=== PATIENT | male | born 1990 | race Caucasian/White ===

== ENCOUNTER 2017-11-30 14:37 | Emergency (ER) | payer SELFPAY ==
--- NOTE | 2017-11-30 14:37 | DT_ITS ---
This patient was seen during an EMR downtime November 25, 2017 - December 02, 2017. This patient may have a combination of paper and electronic documentation or all paper documentation. All documentation is viewable within the e-chart portion of [employer] [facility] for each patient visit.
--- NOTE | 2017-11-30 14:46 | RAD_ITS ---
STUDY: X-RAY - LEFT HAND REASON FOR EXAM: Male, 27 years old. Hand pain. Thumb injury TECHNIQUE: 4 view(s) of the hand. COMPARISON: None. FINDINGS: Normal radiocarpal articulation. Normal distal radioulnar joint. Normal visualized carpal bones. Normal carpal articulations Normal carpometacarpal articulation of the thumb. Normal second through fifth carpometacarpal joints. Normal metacarpi. Normal metacarpophalangeal joint of the thumb. Normal interphalangeal joint of the thumb. Normal proximal and distal phalanges of the thumb. Normal metacarpophalangeal joints of the second through fifth fingers. Normal proximal and distal interphalangeal joints of the second through fifth fingers. Normal phalanges of the second through fifth fingers. The soft tissue structures are unremarkable. RAD/Hand Min 3 Views IMPRESSION: Normal x-ray examination of the hand. Electronically Signed: Cheikh Stuart DO at 14:58 EDT Tel , Service support ,
== END 2017-11-30 16:00 | disposition home or self-care (01) ==
LOC: ED 12-01 14:08
PROVIDERS: Emergency Provider Emergency Medicine; Family Provider Internal Medicine; PCP Internal Medicine
DX: M79.642 Pain in left hand (principal)
CPT/HCPCS: 73130

== ENCOUNTER → 2018-09-26 10:25 | Outpatient (CLI) | payer SELFPAY ==
[2018-09-26 10:18] VITALS: BMI 22.2
--- NOTE | 2018-09-26 10:29 | RAD_ITS ---
STUDY: X-RAY - LEFT TIBIA AND FIBULA REASON FOR EXAM: Male, 28 years old. Pain. TECHNIQUE: 2 view(s) of the tibia and fibula were obtained. COMPARISON: None. FINDINGS: Normal visualized tibia. Normal visualized fibula. The soft tissue structures are unremarkable. RAD/Tibia & Fibula 2 Views IMPRESSION: Normal x-ray examination of the tibia and fibula. Electronically Signed: Jordan Acosta, at 11:13 EDT , Service support ,
== END ==
PROVIDERS: Family Provider Internal Medicine; PCP Internal Medicine; Referring Provider Physician Assistant Surgical; Visit Provider Physician Assistant Surgical
DX: S80.12XA Contusion of left lower leg, initial encounter (principal); X58.XXXA Exposure to other specified factors, initial encounter; Y93.9 Activity, unspecified; Y92.9 Unspecified place or not applicable; Y99.9 Unspecified external cause status
CPT/HCPCS: 73590

== ENCOUNTER → 2019-03-18 16:56 | Outpatient (CLI) | payer SELFPAY ==
[2018-09-26 10:18] VITALS: BMI 22.2
--- NOTE | 2019-03-18 16:59 | RAD_ITS ---
STUDY: X-RAY - UNILATERAL RIBS ( RIGHT ) WITH CHEST REASON FOR EXAM: Male, 28 years old. Right rib pain after acute injury. TECHNIQUE - RIBS: 4 view(s) of the ribs. TECHNIQUE - CHEST: 1 view COMPARISON: Prior chest radiograph January 28, 2016 FINDINGS - RIBS: Normal visualized ribs without a demonstrated fracture. FINDINGS - CHEST: The lungs are clear and expanded. There is no demonstrated pleural abnormality. Normal size heart. Normal mediastinum and umu. Normal visualized pulmonary arteries. Normal visualized aortic arch and descending thoracic aorta. Normal visualized thoracic spine. Normal visualized ribs, clavicles, and shoulders. There is no demonstrated abnormality of the visualized soft tissue structures of the upper abdomen. RAD/Ribs Uni Min 3V w/PA Chest IMPRESSION: RIBS: Normal x-ray examination of the ribs. CHEST: Normal x-ray examination of the chest. Electronically Signed: Kate Borja MD at 18:34 EDT , Service support ,
== END ==
PROVIDERS: Family Provider Internal Medicine; PCP Internal Medicine; Referring Provider Physician Assistant; Visit Provider Physician Assistant
DX: S29.9XXA Unspecified injury of thorax, initial encounter (principal); X58.XXXA Exposure to other specified factors, initial encounter; Y93.9 Activity, unspecified; Y92.9 Unspecified place or not applicable; Y99.9 Unspecified external cause status
CPT/HCPCS: 71101

== ENCOUNTER → 2019-09-30 12:37 | Outpatient (CLI) | payer SELFPAY ==
[2019-03-18 17:27] VITALS: BMI 22.2
--- NOTE | 2019-09-30 12:38 | RAD_ITS ---
STUDY: X-RAY - RIGHT ANKLE REASON FOR EXAM: Male, 29 years old. TWISTED ANKLE LAST NIGHT, LATERAL PAIN TECHNIQUE: 3 view(s) of the ankle. COMPARISON: None. FINDINGS: Normal visualized distal tibia and fibula. Normal medial and lateral malleoli. Normal tibiotalar articulation and ankle mortise. Normal visualized talus and calcaneus. The visualized subtalar, talonavicular, calcaneocuboid and tarsal articulations are normal. The soft tissue structures are unremarkable. RAD/Ankle min 3 Views IMPRESSION: Normal x-ray examination of the ankle. Electronically Signed: Jordan Acosta, at 15:57 EDT , Service support ,
--- NOTE | 2019-09-30 12:38 | RAD_ITS ---
STUDY: X-RAY - RIGHT FOOT CLINICAL: Male, 29 years old. TWISTED FOOT LAST NIGHT LATERAL PAIN TECHNIQUE: 3 view(s) of the foot. COMPARISON: None. FINDINGS: Normal talus, calcaneus, and tarsal bones. Normal visualized subtalar, talonavicular, calcaneocuboid, tarsal and tarsometatarsal articulations. Normal metatarsi. Normal metatarsophalangeal joint of the great toe. Normal tibial and fibular sesamoid bones. Normal interphalangeal joint of the great toe. Normal phalanges of the great toe. Normal second through fifth metatarsophalangeal joints. Normal interphalangeal joints and phalanges of the lesser toes. The soft tissue structures are unremarkable. RAD/Foot min 3 Views IMPRESSION: Normal x-ray examination of the foot. Electronically Signed: Jordan Acosta, at 15:56 EDT , Service support ,
== END ==
PROVIDERS: PCP Internal Medicine; Referring Provider Physician Assistant; Visit Provider Physician Assistant
DX: S99.911A Unspecified injury of right ankle, initial encounter (principal); S99.921A Unspecified injury of right foot, initial encounter; X58.XXXA Exposure to other specified factors, initial encounter; Y93.9 Activity, unspecified; Y99.9 Unspecified external cause status
CPT/HCPCS: 73610; 73630

== ENCOUNTER → 2021-01-10 15:33 | Outpatient (CLI) | payer SELFPAY ==
--- NOTE | 2021-01-10 16:00 | MRI_ITS ---
STUDY: MRI LUMBAR SPINE WITHOUT CONTRAST REASON FOR EXAM: Male, 30 years old. SCIATICA R TECHNIQUE: Standardized fat and water weighted pulse sequences were obtained in the sagittal and axial planes. COMPARISON: None FINDINGS: T12-L1: Normal endplates. Normal disc height, hydration and morphology. Normal bilateral facet joints. Normal central canal and bilateral lateral recesses. Normal bilateral intervertebral neural foramina. Decreased lumbar lordosis. There is no substantial scoliosis. Normal conus medullaris that terminates at L1 L1-2: Normal endplates. Normal disc height, hydration and morphology. Normal bilateral facet joints. Normal central canal and bilateral lateral recesses. Normal bilateral intervertebral neural foramina. L2-3: Normal endplates. Normal disc height, desiccation and normal morphology. Normal bilateral facet joints. Normal central canal and bilateral lateral recesses. Normal bilateral intervertebral neural foramina. L3-4: Normal endplates. Normal disc height, desiccation and normal morphology. Normal bilateral facet joints. Normal central canal and bilateral lateral recesses. Normal bilateral intervertebral neural foramina. L4-5: Normal endplates. Normal disc height, desiccation and tiny central annular tear and disc protrusion.. Normal bilateral facet joints. Normal central canal and bilateral lateral recesses. Normal bilateral intervertebral neural foramina. L5-S1: Normal endplates. Normal disc height, desiccation and minor bulging of the annulus with moderate size right paracentral/posterolateral disc extrusion with posterior inferior migration of disc fragment displacing the descending S1 nerve root on the right.. Normal bilateral facet joints. Normal central canal. Moderate right lateral recess encroachment. Minor bilateral neuroforaminal encroachment. Normal visualized sacral ala. Normal visualized paraspinous soft tissue structures. MRI/Spine Lumbar (Routine) IMPRESSION: No evidence for acute fracture or other significant bony pathology.. Multilevel disc degeneration. Spinal stenosis at L5-S1 more severe on the right secondary to minor annular bulge with moderate-sized right paracentral/posterolateral disc extrusion displacing the descending right S1 nerve root. Tiny central annular tear and disc protrusion at L4-5 without spinal stenosis Electronically Signed: Heriberto Max MD at 16:40 EDT , Service support ,
--- NOTE | 2021-01-10 16:45 | MRI_ITS ---
STUDY: MRI BILATERAL HIPS T PELVIS REASON FOR EXAM: Low back pain extending into right leg since injury 11/04/2020. TECHNIQUE: Standardized fat and water weighted pulse sequences were obtained in all 3 orthogonal planes. COMPARISON: None. FINDINGS: RIGHT HIP Normal hip joint without articular joint space narrowing. Normal right acetabulum. Normal right labrum. Normal right femoral head. Normal right femoral neck and intratrochanteric region. Normal right gluteus minimus, medius and iliopsoas tendons and distal insertions. Normal right superior and inferior pubic rami. Normal right pubic symphysis. Normal right ischial tuberosity. Normal origin of the right hamstring tendons. Normal visualized right iliac wing, sacroiliac joint, and sacral ala. Normal visualized soft tissue structures of the pelvis. LEFT HIP Normal left hip joint without articular joint space narrowing. Normal left acetabulum. Normal left labrum. Normal left femoral head. Normal left femoral neck and intratrochanteric region. Normal left gluteus minimus, medius and iliopsoas tendons and distal insertions. Normal left superior and inferior pubic rami. Normal left pubic symphysis. Normal left ischial tuberosity. Normal origin of the left hamstring tendons. Normal visualized left iliac wing, sacroiliac joint, and sacral ala. Normal visualized soft tissue structures of the pelvis. MRI/Pelvis (Routine) IMPRESSION: Normal MRI of the pelvis/bilateral hips. Electronically Signed: Jorge Mallory MD at 11:32 EDT Tel , Service support ,
== END ==
PROVIDERS: PCP Internal Medicine; Referring Provider Internal Medicine; Visit Provider Internal Medicine
DX: M54.30 Sciatica, unspecified side (principal)
CPT/HCPCS: 72148; 72195

== ENCOUNTER 2021-05-03 15:56 | Emergency (ER) | payer OTHER, SELFPAY ==
[2021-05-03 15:56] VITALS: BP 160/85; PULSE 107; RESP 18; TEMP 37.2; O2SAT 100; BMI 19.9
--- NOTE | 2021-05-03 16:17 | ED.VIS.BACK ---
HPI History of Present Illness Chief Complaint: Back Narrative Narrative: 31-year-old male presenting with back pain. He states this is not a new issue. He initially injured his back in October. He has been following up outpatient for physical therapy and has been seeing Dr. Garduno. He has tried muscle relaxers and steroids. He currently has a flareup of this pain. He states he was supposed to follow-up with the [facility] spinal specialist however after already seeing him and having physical therapy he is insurance is now no longer covered by the specialist and he does not have follow-up. Patient denies any loss of bladder or bowel control. He denies saddle anesthesia. He is eating and drinking normally. He states that the pain in his back radiates into the right gluteal region and down the posterior aspect of his leg and this is consistent with what it has been although it was better controlled previously. He is able to ambulate. PFSH PFSH Medical History Hx of appendicitis Hx of melanoma of skin Smoker Home Medications ibuprofen [Motrin] 800 mg PO Q6H PRN 05/03/21 [History Last Taken Unknown] Allergy/AdvReac Type Severity Reaction Status Date / Time walnut Allergy Hives Verified 05/03/21 15:58 Family History Other Skin cancer Social History Smoking Status: Never smoker alcohol intake: current alcohol intake frequency: a few times a month Alcohol type: hard liquor ROS ROS ED Review of Systems ROS Unobtainable: Denies due to encephalopathy Constitutional Constitutional ED: Denies chills or fever(s) Eyes Eyes: Denies blurry vision or change in vision ENT ENT ED: Denies rhinorrhea or sore throat Cardiovascular Cardiovascular: Denies chest pain or palpitations Respiratory/Chest Respiratory/Chest: Denies dyspnea or sputum Gastrointestinal Gastrointestinal: Denies abdominal pain or nausea Genitourinary Genitourinary ED: Denies dysuria or hematuria Musculoskeletal Musculoskeletal: Reports back pain; Denies arthralgias or myalgias Integumentary Denies Abrasions or rash Neurologic Neurologic: Reports paresthesias RLE; Denies headache(s) EXAM Physical Exam Const Vital Signs: 05/03/21 15:56 11/10/21 16:53 Temperature 98.9 F Temperature Source Temporal Pulse Rate 107 H 72 Respiratory Rate 18 15 Blood Pressure 160/85 H Blood Pressure Mean 110 Pulse Ox 100 100 Oxygen Delivery Method Room Air Room Air Positive well nourished General Appearance ED: NAD; Negative for pallor HEENT Reports moist mucous membranes Negative for trauma Eyes PERRL and EOMs intact bilaterally Resp normal respiratory effort and clear to auscultation bilaterally Cardio regular rate and regular rhythm Back/Spine Back/Spine Narrative: Right lumbar paraspinal musculature tenderness. There is tenderness that extends into the right gluteal region. Patient able to flex the right hip to approximately 30 degrees actively. Sensation is intact. Extremity normal to inspection General Extremety ED: Negative for tenderness Neuro oriented x3 Sensorium / Orientation: alert Psych mental status grossly normal Skin General Skin Exam: Negative for jaundice or pallor MDM MDM MDM Narrative Medical decision making narrative: Patient given IM morphine, Zofran, oxycodone. On reevaluation his pain is improved. I will give him a short supply of Percocet and a prednisone taper as this is helped him in the past. He will be given follow-up with Dr. Bartlett. Patient has no signs or symptoms of cauda equina or other acute pathology requiring MRI. He previously had an MRI which showed bulging disks. Patient will follow up outpatient with Dr. Garduno and ortho spine. Impression: 1. Lumbar radiculopathy Discharge Plan Triage Chief Complaint: Back ED Provider: Simeon Evans Dx/Rx/DC Orders Instructions: ED Back Sprain/Strain Prescriptions: No Action ibuprofen [Motrin] 800 mg Tablet 800 mg PO Q6H PRN (Reason: Pain) RF: 0 Primary Care Provider: Jaky Garduno Referrals: Jaky Garduno MD [Primary Care Provider] - Heriberto Bartlett DO [STAFF PHYSICIAN] - As soon as possible Disposition Disposition: Home, Self Care
[2021-05-03] MEDS: Morphine 4 MG/ML Syringe IM (16:47)
[2021-05-03] MEDS: oxyCODONE 5 MG Tablet PO (16:47)
[2021-05-03] MEDS: Ondansetron ODT 4 MG Tablet PO (16:48)
[2021-05-03 16:53] VITALS: PULSE 72; RESP 15; O2SAT 100
== END 2021-05-03 20:03 | disposition home or self-care (01) ==
LOC: ED 16:44
PROVIDERS: Emergency Provider Student in an Organized Health Care Education/Training Program; PCP Internal Medicine
DX: M54.16 Radiculopathy, lumbar region (principal); Z85.820 Personal history of malignant melanoma of skin; Z79.1 Long term (current) use of non-steroidal anti-inflammatories (NSAID)
CPT/HCPCS: 96372; 99282

== ENCOUNTER 2024-06-01 20:18 | Observation (INO) | payer SELFPAY ==
[2024-06-01 20:21] VITALS: BP 141/79; PULSE 78; RESP 18; TEMP 37.2; O2SAT 100; BMI 21.3
[2024-06-01 20:23] VITALS: BP 141/79; PULSE 78; RESP 18; TEMP 37.2; O2SAT 100
--- NOTE | 2024-06-01 21:12 | EX.ED.DYSGE1 ---
HPI History of Present Illness Chief Complaint: Cellulitis Informant: patient Onset/Context/Timing Onset: Today Context: Sudden Onset Timing: Continuous Quality: Stiffness Location: Dorsal aspect of right hand over third MCP joint Worsened by: Movement Relieved by: Nothing Narrative Narrative: Patient presents with redness and swelling to his right hand that began today. Patient states he noted the redness going up his forearm into his upper arm. Patient states he was working outside today and was picking up some animals without any gloves on. Patient is unsure if there is an open wound on his hand. Patient describes his pain as a stiffness. Patient states it is worse with movement. Patient thinks his last tetanus was approximately 10 years ago. Patient admits to some tingling into his fingers. Patient denies any weakness. Patient denies any fevers or chills. Patient admits to some nausea but denies any vomiting. [facility] Medical History Skull fracture Smoker Hx of appendicitis Hx of melanoma of skin Home Medications ?Medication ?Instructions ?Recorded ?Last Taken ?Type ibuprofen 800 mg tablet 800 mg PO Q6H PRN Pain 05/03/21 Unknown History methocarbamol 500 mg tablet 500 mg PO QHS 05/22/21 Unknown History naproxen sodium 220 mg capsule 220 mg PO BID PRN 05/22/21 Unknown History (Aleve) Allergy/AdvReac Type Severity Reaction Status Date / Time walnut Allergy Hives Verified 06/01/24 20:21 Family History (Updated 05/22/21 @ 10:02 by Ebonie Ramos) Other Melanoma Skin cancer Surgical History History of appendectomy Social History Smoking Status: Current every day smoker tobacco type: cigarettes alcohol intake: current alcohol intake frequency: a few times a month Alcohol type: hard liquor substance use type: does not use what type of physical activity do you participate in: running and swimming do you feel safe at home: Yes ROS ROS ED Constitutional Constitutional ED: Denies chills or fever(s) Eyes Eyes: Denies blurry vision or change in vision ENT ENT ED: Reports sore throat; Denies rhinorrhea Cardiovascular Cardiovascular: Denies chest pain or palpitations Respiratory/Chest Respiratory/Chest: Reports dyspnea; Denies cough Gastrointestinal Gastrointestinal: Reports nausea; Denies vomiting Genitourinary Genitourinary ED: Denies dysuria or hematuria Musculoskeletal Musculoskeletal: Denies back pain or neck pain Integumentary Reports rash; Denies abscess Neurologic Neurologic: Reports headache(s); Denies weakness Allergic/Immunologic Allergic/Immunologic ED: Denies mouth swelling or urticaria EXAM Physical Exam Const Vital Signs: 06/01/24 20:21 06/01/24 20:23 06/01/24 22:00 Temperature 98.9 F 98.9 F 98.9 F Temperature Source Oral Oral Oral Pulse Rate 78 78 59 L Respiratory Rate 18 18 18 Blood Pressure 141/79 H 141/79 H 123/78 H Blood Pressure Mean 99 99 93 Pulse Ox 100 100 98 Oxygen Delivery Method Room Air Room Air Room Air 06/01/24 22:50 06/01/24 23:42 Temperature 98.7 F 98.6 F Temperature Source Oral Oral Pulse Rate 54 L 59 L Respiratory Rate 16 16 Blood Pressure 122/79 H 130/70 H Blood Pressure Mean 93 90 Pulse Ox 99 97 Oxygen Delivery Method Room Air Positive well nourished and well developed General Appearance ED: well developed and NAD HEENT Reports moist mucous membranes Neck supple and no JVD Resp normal respiratory effort and clear to auscultation bilaterally Cardio regular rate, regular rhythm and no murmurs GI non-tender and non-distended Palpation: soft Extremity Extremity Narrative: There is erythema and warmth over the dorsal aspect of the right hand over the third MCP joint. There is no evidence of any abscess. There is no fluctuance. There is no active discharge or drainage. There is erythematous streaking over the dorsal aspect of his forearm and upper arm. Radial pulses are equal bilaterally. Sensation is intact to light touch in the radial, median, and ulnar areas. Strength is 5/5 in the radial, median, and ulnar areas. Neuro oriented x3, CN's II-XII intact bilaterally and no sensory deficits noted Sensorium / Orientation: alert Motor Exam: strength 5/5 throughout Psych mental status grossly normal MDM MDM MDM Narrative Medical decision making narrative: Differential diagnosis includes cellulitis, lymphangitis, osteomyelitis, sepsis, and retained foreign body. X-rays of the right hand will be obtained to assess for osteomyelitis and retained foreign body. CBC will be obtained to assess for leukocytosis and anemia. Basic metabolic profile will be obtained to assess for electrolyte abnormality and renal function. Blood cultures will be obtained to assess for sepsis. Serum lactate will be obtained to assess for sepsis. Lab Data Attestation: I reviewed the patient's lab results. Lab results narrative: CBC was reviewed today and was within normal limits. Basic metabolic profile was reviewed and was within normal limits. Serum lactate was reviewed and was normal. Labs: Laboratory Results - last 24 hr 06/01/24 22:00 WBC 10.3 RBC 4.18 L Hgb 13.2 Hct 37.6 L MCV 90.0 MCH 31.6 MCHC 35.1 RDW Std Deviation 42.5 RDW Coeff of Lilia 13.0 Plt Count 173 MPV 9.8 Immature Gran % (Auto) 0.300 Neut % (Auto) 67.3 Lymph % (Auto) 24.1 Lewis % (Auto) 5.8 Eos % (Auto) 2.0 Baso % (Auto) 0.5 Absolute Neuts (auto) 6.9 Absolute Lymphs (auto) 2.47 Nucleated RBC % 0 Sodium 140 Potassium 3.5 Chloride 107 Carbon Dioxide 30.0 Anion Gap 3 L BUN 17 Creatinine 0.92 Estim Creat Clear Calc 116.34 Est GFR (MDRD) Af Amer 120 Est GFR (MDRD) Non-Af 100 BUN/Creatinine Ratio 18.5 Glucose 92 Lactic Acid 0.9 Calcium 9.5 Radiography Diagnostic Testing: Clinical Impression(s) from Imaging Studies Hand X-Ray 06/01/24 22:15 IMPRESSION: 1. Soft tissue swelling of the dorsum of the hand at the level of the metacarpal heads. 2. No fractures. Electronically Signed: Joaquín Victoria MD at 23:36 EST , X-rays of the right hand were obtained. There are 3 views. On my independent interpretation, there is no acute fracture. There is no radiopaque foreign body noted. There is some soft tissue swelling. There is no evidence of osteomyelitis. Radiologist also interpreted the x-rays and agrees. Management Discussion w/another healthcare provider: Hospitalist Treatment and Re-Evaluation :: Patient was given a tetanus booster. Patient was given a dose of Ancef. The lymphangitic streaking up to his axilla, I recommended admission to the hospital. Case was discussed with the hospitalist. He will admit the patient to his service. He also recommended adding vancomycin. This was ordered. Patient understands and is agreeable with the plan. All questions were answered. Discharge Plan Triage Chief Complaint: Cellulitis ED Provider: Ti Kay Dx/Rx/DC Orders Clinical Impression: Lymphangitis, Cellulitis Prescriptions: No Action naproxen sodium [Aleve] 220 mg capsule 220 mg PO BID PRN methocarbamol 500 mg tablet 500 mg PO QHS ibuprofen [Motrin] 800 mg Tablet 800 mg PO Q6H PRN (Reason: Pain) Primary Care Provider: Care Physician,No Primary Referrals: Care Physician,No Primary [Primary Care Provider] - Print Language: Yakut Disposition Disposition: Acute Care [facility]
[2024-06-01 22:00] VITALS: BP 123/78; PULSE 59; RESP 18; TEMP 37.2; O2SAT 98
[2024-06-01 22:09] LABS: Absolute Lymphocyte Count 2.47 X10^3/uL (0.83-4.51); Absolute Neutrophil Count 6.9 X10^3/uL (2.0-7.7); Basophil# 0.05 X10^3/uL; Basophil% 0.5 % (0-1); Eosinophil# 0.21 X10^3/uL; Hematocrit 37.6 % (40-54); Hemoglobin 13.2 g/dL (13.0-16.5); Lymphocyte # 2.47 X10^3/ul (0.83-4.51); Lymphocyte % 24.1 % (19-41); Mean Corp Hgb Conc 35.1 g/dL (32-36); Mean Corpuscular Hgb 31.6 pg (27.0-32.0); Mean Platelet Vol. 9.8 fl (6.2-12.0); Monocyte% 5.8 % (0-10); NRBC Flagged by Analyzer 0 % (0-5); Neutrophil % 67.3 % (47-70); Platelet Count 173 K/mm3 (150-450); RBC Distribution Width SD 42.5 fl (35.1-43.9); Red Blood Count 4.18 M/mm3 (4.6-6.2); White Blood Count 10.3 K/mm3 (4.4-11.0)
--- NOTE | 2024-06-01 22:15 | RAD_ITS ---
EXAM: XR RIGHT HAND COMPLETE, 3 OR MORE VIEWS CLINICAL INDICATION: Injury/Pain TECHNIQUE: Frontal, lateral and oblique views of the right hand. COMPARISON: No relevant prior studies available. FINDINGS: BONES/JOINTS: Unremarkable. No acute fracture. No subluxation. Normal alignment. Preservation of the joint space. No sclerotic or destructive changes observed. SOFT TISSUES: Soft tissue swelling of the dorsum of the hand at the level of the metacarpal heads. No radiopaque foreign body. RAD/Hand Min 3 Views IMPRESSION: 1. Soft tissue swelling of the dorsum of the hand at the level of the metacarpal heads. 2. No fractures. Electronically Signed: Joaquín Victoria MD at 23:36 EST ,
[2024-06-01] MEDS: Cefazolin 2 GM in Syringe IV (22:17)
[2024-06-01 22:26] LABS: Anion Gap 3 (5-15); BUN 17 mg/dL (7-18); BUN/Creat Ratio 18.5 RATIO (10-20); Calcium,Total 9.5 mg/dL (8.5-10.1); Chloride 107 mmol/L (98-107); Creatinine, Serum 0.92 mg/dL (0.70-1.30); EST Glomerular Filtration Rate 100 mL/min (>60); Est Glom Filt Rate - Afr Amer 120 mL/min (>60); Estimated Creatinine Clearance 116.34 ml/min; Glucose 92 mg/dL (74-106); Potassium 3.5 mmol/L (3.5-5.1); Sodium Level 140 mmol/L (136-145)
[2024-06-01 22:50] VITALS: BP 122/79; PULSE 54; RESP 16; TEMP 37.1; O2SAT 99
[2024-06-01 23:11] LABS: Lactic Acid 0.9 mmol/L (0.4-1.9)
[2024-06-01 23:42] VITALS: BP 130/70; PULSE 59; RESP 16; TEMP 37; O2SAT 97
[2024-06-02] MEDS: Diphth,Pertuss(Acell),Tet Vac 0.5 ML Vial IM (00:07)
--- NOTE | 2024-06-02 00:17 | PCM.HP.STD ---
HPI - General General Date of Admission: 06/02/24 Date of Service: 06/02/24 Chief Complaint: Cellulitis right hand HPI Narrative SAMANTHA ORTIZ, is a 34 M who presents to the emergency room with right hand cellulitis. Onset of symptoms began earlier today and is noticed to have progression rapidly with lymphangitic streaking up to the level of his right shoulder. Patient denies fevers or chills but does have pain in the dorsum of his right hand with redness and swelling. 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 Patient denies any chest pain, shortness of breath or fevers or chills at present time. Patient will be admitted for antibiotic therapy. [facility] Medical History Skull fracture Smoker Hx of appendicitis Hx of melanoma of skin Home Medications ?Medication ?Instructions ?Recorded ?Last Taken ?Type NK 06/02/24 Unknown History Allergy/AdvReac Type Severity Reaction Status Date / Time walnut Allergy Hives Verified 06/01/24 20:21 Family History (Updated 05/22/21 @ 10:02 by Ebonie Ramos) Other Melanoma Skin cancer Surgical History History of appendectomy Social History Smoking Status: Current every day smoker tobacco type: cigarettes alcohol intake: current alcohol intake frequency: a few times a month Alcohol type: hard liquor substance use type: does not use what type of physical activity do you participate in: running and swimming do you feel safe at home: Yes ROS Constitutional Constitutional: Denies chills or fever(s) Eyes Eyes: Denies blurry vision ENT HEENT: Denies abnormal hearing Cardiovascular Cardiovascular: Denies chest pain Respiratory/Chest Respiratory/Chest: Denies cough Gastrointestinal Gastrointestinal: Denies abdominal pain Musculoskeletal Musculoskeletal: Denies back pain Integumentary Integumentary: Reports wounds Neurologic Neurologic: Denies abnormal speech Psychiatric Psychiatric: Denies anxiety Vital Signs Vital Signs Vital Signs: 06/01/24 20:21 06/01/24 20:23 06/01/24 22:00 Temperature 98.9 F 98.9 F 98.9 F Temperature Source Oral Oral Oral Pulse Rate 78 78 59 L Respiratory Rate 18 18 18 Blood Pressure 141/79 H 141/79 H 123/78 H Blood Pressure Mean 99 99 93 Pulse Ox 100 100 98 Oxygen Delivery Method Room Air Room Air Room Air 06/01/24 22:50 06/01/24 23:42 Temperature 98.7 F 98.6 F Temperature Source Oral Oral Pulse Rate 54 L 59 L Respiratory Rate 16 16 Blood Pressure 122/79 H 130/70 H Blood Pressure Mean 93 90 Pulse Ox 99 97 Oxygen Delivery Method Room Air Weight Weight: 161 lb 12.8 oz Body Mass Index (BMI) 21.3 Physical Exam Const oriented x3 General Appearance: cooperative and well developed HEENT normocephalic and head/scalp atraumatic Neck no lymphadenopathy Lymph Lymphatic: no lymphadenopathy noted Resp normal respiratory effort, normal air movement and clear to auscultation bilaterally Cardio regular rate, regular rhythm, S1 normal heart sound and S2 normal heart sound GI normal to inspection, nondistended, normoactive bowel sounds Skin Wounds: wounds noted Wound Narrative: Dorsum right hand 4 x 6 cm of erythema, nonfluctuant indurated with streaking up to right shoulder Neuro no focal motor deficits and no sensory deficits noted Psych thought process normal Appearance: appropriate Results Lab / Micro Data 06/01/24 22:00 06/01/24 22:00 Labs: Laboratory Results - last 24 hr 06/01/24 22:00: WBC 10.3, RBC 4.18 L, Hgb 13.2, Hct 37.6 L, MCV 90.0, MCH 31.6, MCHC 35.1, RDW Std Deviation 42.5, RDW Coeff of Lilia 13.0, Plt Count 173, MPV 9.8, Immature Gran % (Auto) 0.300, Neut % (Auto) 67.3, Lymph % (Auto) 24.1, [place] % (Auto) 5.8, Eos % (Auto) 2.0, Baso % (Auto) 0.5, Absolute Neuts (auto) 6.9, Absolute Lymphs (auto) 2.47, Nucleated RBC % 0, Sodium 140, Potassium 3.5, Chloride 107, Carbon Dioxide 30.0, Anion Gap 3 L, BUN 17, Creatinine 0.92, Estim Creat Clear Calc 116.34, Est GFR (MDRD) Af Amer 120, Est GFR (MDRD) Non-Af 100, BUN/Creatinine Ratio 18.5, Glucose 92, Lactic Acid 0.9, Calcium 9.5 Imaging Radiology Impression Hand X-Ray 06/01/24 22:15 IMPRESSION: 1. Soft tissue swelling of the dorsum of the hand at the level of the metacarpal heads. 2. No fractures. Electronically Signed: Joaquín Victoria MD at 23:36 EST , Assessment & Plan Assessment/Plan (1) Cellulitis: (2) Lymphangitis: PLAN: Plan 1 cellulitis with lymphangitic streaking on right upper extremity?admit patient for observation initiate treatment with Unasyn IV 3 g every 6 hours, vancomycin for MRSA coverage. As patient improves antibiotics can be de-escalated and transferred to oral antibiotic therapy upon discharge home. Repeat CBC in a.m. 2. DVT prophylaxis?patient is ambulatory and no prophylaxis is needed at this time. Charges/Coding Visit Charges OBSV E&M: 58851 Observ/hosp same date L2
[2024-06-02] MEDS: WATER IV (00:45)
[2024-06-02] MEDS: VANCOMYCIN HCL IV (00:45)
[2024-06-02] MEDS: DEXTROSE 5% IV (00:45)
[2024-06-02 00:47] VITALS: BP 123/72; PULSE 59; RESP 18; TEMP 36.9; O2SAT 100
[2024-06-02 01:10] VITALS: BP 124/77; PULSE 67; RESP 16; TEMP 36.6; O2SAT 100
[2024-06-02 01:11] VITALS: BMI 20.8
--- NOTE | 2024-06-02 01:30 | PCM.RX.CS ---
Consult Antibiotic Management Pharmacy has been consulted to manage selected antibiotic: Vancomycin Type of Intervention Type of Consult: New start Suspected Infection Suspected Infection: Skin/Soft tissue Labs Labs: Sodium 140 mmol/L (136-145) 06/01/24 22:00 Potassium 3.5 mmol/L (3.5-5.1) 06/01/24 22:00 Chloride 107 mmol/L (98-107) 06/01/24 22:00 Carbon Dioxide 30.0 mmol/L (21.0-32.0) 06/01/24 22:00 Anion Gap 3 (5-15) L 06/01/24 22:00 BUN 17 mg/dL (7-18) 06/01/24 22:00 Creatinine 0.92 mg/dL (0.70-1.30) 06/01/24 22:00 Est GFR (MDRD) Af Amer 120 mL/min (>60) 06/01/24 22:00 Est GFR (MDRD) Non-Af 100 mL/min (>60) 06/01/24 22:00 BUN/Creatinine Ratio 18.5 RATIO (10-20) 06/01/24 22:00 Glucose 92 mg/dL (74-106) 06/01/24 22:00 Dosing Weight Weight used for dosin kg Estimated Creatinine Clearance Estimated Creatinine Clearance: 116 Goal Trough Goal Trough: 10-15 mcg/mL Pharmacy Plan for Drug Dosing Pharmacy Plan for Drug Dosing: Pharmacy Service will continue to monitor and adjust dosing as required. Follow-Up Labs Follow-Up Labs: Trough: Vancomycin Date/Time Labs Ordered Labs to be done on [date and time ordered]: 06/03/24 @1231
[2024-06-02 06:05] VITALS: BP 118/70; PULSE 62; RESP 16; TEMP 36.7; O2SAT 100
[2024-06-02] MEDS: 0.9% Saline Lock 10 ML Syringe IV ×2 (06:22→11:22)
[2024-06-02] MEDS: Ampicillin/Sulbactam 3 GM in 0.9% Normal Saline (100mL MB+) 100 ML IV ×2 (06:22→11:22)
[2024-06-02 06:28] LABS: Absolute Lymphocyte Count 3.11 X10^3/uL (0.83-4.51); Absolute Neutrophil Count 3.6 X10^3/uL (2.0-7.7); Basophil# 0.03 X10^3/uL; Basophil% 0.4 % (0-1); Eosinophil# 0.29 X10^3/uL; Eosinophils% 3.8 % (0-5); Hematocrit 39.2 % (40-54); Hemoglobin 13.4 g/dL (13.0-16.5); Lymphocyte # 3.11 X10^3/ul (0.83-4.51); Lymphocyte % 40.4 % (19-41); Mean Corp Hgb Conc 34.2 g/dL (32-36); Mean Corpuscular Hgb 30.9 pg (27.0-32.0); Mean Corpuscular Volume 90.3 fL (80-94); Mean Platelet Vol. 9.7 fl (6.2-12.0); Monocyte# 0.63 X10^3/uL; Monocyte% 8.2 % (0-10); NRBC Flagged by Analyzer 0 % (0-5); Neutrophil % 46.8 % (47-70); Platelet Count 161 K/mm3 (150-450); RBC Distribution Width SD 42.5 fl (35.1-43.9); Red Blood Count 4.34 M/mm3 (4.6-6.2); White Blood Count 7.7 K/mm3 (4.4-11.0)
--- NOTE | 2024-06-02 08:52 | PCM.PN.HOSP ---
Reason for Visit Reason for Visit: Diagnoses Lymphangitis (06/02/24) Cellulitis, unspecified (06/02/24) Subjective Subjective Hand feeling much better. Lymphangitis nearly resolved. Objective Data Objective Data Vital Signs: Vital Signs Temp Pulse Resp BP Pulse Ox O2 Del Method 36.7 C 62 16 118/70 100 Room Air 06/02/24 06:05 06/02/24 06:05 06/02/24 06:05 06/02/24 06:05 06/02/24 06:05 06/02/24 06:05 Oxygen Delivery Method Room Air Weight: 71.7 kg Body Mass Index (BMI) 20.8 Intake & Output: Intake and Output for Last 24 Hours 05/31/24 06/01/24 06/02/24 23:59 23:59 23:59 Intake Total 535 / 535 Balance 535 / 535 Lab / Micro Data 06/02/24 05:55 06/01/24 22:00 Labs: Laboratory Results - last 24 hr 06/01/24 22:00: WBC 10.3, RBC 4.18 L, Hgb 13.2, Hct 37.6 L, MCV 90.0, MCH 31.6, MCHC 35.1, RDW Std Deviation 42.5, RDW Coeff of Lilia 13.0, Plt Count 173, MPV 9.8, Immature Gran % (Auto) 0.300, Neut % (Auto) 67.3, Lymph % (Auto) 24.1, [place] % (Auto) 5.8, Eos % (Auto) 2.0, Baso % (Auto) 0.5, Absolute Neuts (auto) 6.9, Absolute Lymphs (auto) 2.47, Nucleated RBC % 0, Sodium 140, Potassium 3.5, Chloride 107, Carbon Dioxide 30.0, Anion Gap 3 L, BUN 17, Creatinine 0.92, Estim Creat Clear Calc 116.34, Est GFR (MDRD) Af Amer 120, Est GFR (MDRD) Non-Af 100, BUN/Creatinine Ratio 18.5, Glucose 92, Lactic Acid 0.9, Calcium 9.5 06/02/24 05:55: WBC 7.7, RBC 4.34 L, Hgb 13.4, Hct 39.2 L, MCV 90.3, MCH 30.9, MCHC 34.2, RDW Std Deviation 42.5, RDW Coeff of Lilia 13.0, Plt Count 161, MPV 9.7, Immature Gran % (Auto) 0.400, Neut % (Auto) 46.8 L, Lymph % (Auto) 40.4, [place] % (Auto) 8.2, Eos % (Auto) 3.8, Baso % (Auto) 0.4, Absolute Neuts (auto) 3.6, Absolute Lymphs (auto) 3.11, Nucleated RBC % 0 Radiography Diagnostic Testing: Radiology Impression Hand X-Ray 06/01/24 22:15 IMPRESSION: 1. Soft tissue swelling of the dorsum of the hand at the level of the metacarpal heads. 2. No fractures. Electronically Signed: Joaquín Victoria MD at 23:36 EST , Physical Exam Const alert and no apparent distress Skin Skin Narrative: light erythema on dorsum of right hand with unroofed lesion on right middle finger w/o purulence. Area withdrawn from line of demarcation. Assessment & Plan Assessment/Plan (1) Cellulitis: (2) Lymphangitis: PLAN: Plan RUE cellulitis w lymphangitis abx with amp/SB and vancomycin. DC with cephalexin and doxycycline. BCx pending Pt advised to wear gloves while working and to wash hands.
[2024-06-02 11:47] VITALS: BP 129/78; PULSE 56; RESP 16; TEMP 36.9; O2SAT 100
[2024-06-02 11:49] VITALS: BP 129/78; PULSE 56; RESP 16; TEMP 36.9; O2SAT 100
[2024-06-02] MEDS: Vancomycin HCl 1,250 MG in 0.9% Normal Saline (250mL Bag) 250 ML 167 MG IV (12:57)
--- NOTE | 2024-06-02 14:14 | CASEMGMT ---
CATHY met with patient as he is self pay. Patient has his own business. Dori from [employer] met with patient and thought he would not qualify. She did tell patient if he looks at his gross income from his taxes last year and it fits in the guidelines she gave him to give her a call and she will help him apply for Medicaid. CATHY provided patient with information on Gissel Ivey, [facility], [address], and information on prescription assistance programs. Jacy DE PAZ
--- NOTE | 2024-06-02 14:14 | PCM.DC.SUM ---
Providers Date of Admission: 06/02/24 Primary Care Physician: No Primary Care Phys Reason For Visit: CELLULITIS Diagnosis Discharge Diagnosis (1) Cellulitis: Status: Acute Code(s): L03.90 - Cellulitis, unspecified (2) Lymphangitis: Status: Acute Code(s): I89.1 - Lymphangitis Plan RUE cellulitis w lymphangitis abx with amp/SB and vancomycin. DC with cephalexin and doxycycline. BCx pending Pt advised to wear gloves while working and to wash hands. Pt improved much faster than initially anticipated. Medications at Discharge Home Medications cephalexin 500 mg capsule 500 mg PO Q8H #15 caps 06/02/24 doxycycline monohydrate 100 mg tablet 100 mg PO BID #10 tabs 06/02/24 Hospital Course Operations None Procedures None Weight / BMI Weight Weight: 71.7 kg Body Mass Index (BMI) 20.8 ABG / Lab / Microbiology Data 06/02/24 05:55 06/01/24 22:00 Laboratory: Laboratory Results - last 24 hr 06/01/24 22:00: WBC 10.3, RBC 4.18 L, Hgb 13.2, Hct 37.6 L, MCV 90.0, MCH 31.6, MCHC 35.1, RDW Std Deviation 42.5, RDW Coeff of Lilia 13.0, Plt Count 173, MPV 9.8, Immature Gran % (Auto) 0.300, Neut % (Auto) 67.3, Lymph % (Auto) 24.1, [place] % (Auto) 5.8, Eos % (Auto) 2.0, Baso % (Auto) 0.5, Absolute Neuts (auto) 6.9, Absolute Lymphs (auto) 2.47, Nucleated RBC % 0, Sodium 140, Potassium 3.5, Chloride 107, Carbon Dioxide 30.0, Anion Gap 3 L, BUN 17, Creatinine 0.92, Estim Creat Clear Calc 116.34, Est GFR (MDRD) Af Amer 120, Est GFR (MDRD) Non-Af 100, BUN/Creatinine Ratio 18.5, Glucose 92, Lactic Acid 0.9, Calcium 9.5 06/02/24 05:55: WBC 7.7, RBC 4.34 L, Hgb 13.4, Hct 39.2 L, MCV 90.3, MCH 30.9, MCHC 34.2, RDW Std Deviation 42.5, RDW Coeff of Lilia 13.0, Plt Count 161, MPV 9.7, Immature Gran % (Auto) 0.400, Neut % (Auto) 46.8 L, Lymph % (Auto) 40.4, [place] % (Auto) 8.2, Eos % (Auto) 3.8, Baso % (Auto) 0.4, Absolute Neuts (auto) 3.6, Absolute Lymphs (auto) 3.11, Nucleated RBC % 0 Radiography Diagnostic Testing: Radiology Impression Hand X-Ray 06/01/24 22:15 IMPRESSION: 1. Soft tissue swelling of the dorsum of the hand at the level of the metacarpal heads. 2. No fractures. Electronically Signed: Joaquín Victoria MD at 23:36 EST , D/C Instructions Discharge Diet: No restrictions DC O2, CPAP, BIPAP Needs Additional Home O2 Discharge instructions: No DC home with Oxygen: No Meaningful Use Info Meaningful Use Meaningful Use Diagnoses (Choose all that apply): None applicable Ischemic Stroke Statin Dosing Therapy Reference: STATIN DOSE THERAPY REFERENCE: * Patients > 75 years receive moderate or high dose statin therapy. * Patients 75 years or YOUNGER should receive HIGH intensity statin dose unless contraindicated. You will be required to document reason for non-treatment if statin daily dose does not meet guidelines. HIGH DOSE STATIN THERAPY DAILY Atorvastatin > than or = to 40 mg Rosuvastatin > than or = to 20 mg Amlodipine + Atorvastatin > than or = to 2.5/40 mg Ezetimibe + Simvastatin 10/80 mg Simvastatin 80mg Discharge Plan Admission Admit Date/Time: 06/02/24 00:22 Primary Reason for Your Visit: Right hand cellulitis Attending Provider: Ti Barraza Primary Care Provider: Care Physician,No Primary Consulting Providers: Glen Turnre Instructions Additional Instructions / Restrictions: Keep wound on your right hand clean and dry. Wear gloves when you are working. Sure to wash your hands frequently. If you notice any increased redness or drainage from your wound or redness of your hand, notify your physician or return to the emergency room. Discharge Orders/Prescriptions Prescriptions: New cephalexin 500 mg capsule 500 mg PO Q8H Qty: 15 0RF doxycycline monohydrate 100 mg tablet 100 mg PO BID Qty: 10 0RF Referrals / Follow Up: Care Physician,No Primary [Primary Care Provider] - Disposition Disposition (needs filled in before D/C Order can be placed): Home, Self Care Charges/Coding Visit Charges Inpatient E&M: 91648 Disch Hosp
--- NOTE | 2024-06-02 14:41 | CASEMGMT ---
Patient's prescriptions were sent to [facility]. SW called [facility] and the prescriptions come to $35. SW spoke with patient and let him know. Patient said he can afford this. Jacy DE PAZ
--- NOTE | 2024-06-02 14:51 | CASEMGMT ---
Patient has order for discharge. RN CM in to discuss needs at discharge. Patient denies needs or help at discharge. Patient had no further questions or concerns.
--- NOTE | 2024-06-02 15:22 | PHA.DC.MC.R ---
Pharmacy [facility] Pharmacy Service has performed discharge medication reconciliation and counseling for this patient. The patient's discharge medication list was reviewed for discrepancies and discrepancies were resolved. The patient was counseled on the following discharge medications and changes in medications for homegoing were reviewed. The Reason for Use, instructions for use, and potential side effects were reviewed for all new medications. The patient's questions regarding all of their medications were answered. 1. Cephalexin 500 mg Q8H x 5 days 2. Doxycycline 100 mg PO BID x 5 days The patient was able to verbally demonstrate an understanding of their discharge medications. Medications at Discharge Home Medications cephalexin 500 mg capsule 500 mg PO Q8H #15 caps 06/02/24 doxycycline monohydrate 100 mg tablet 100 mg PO BID #10 tabs 06/02/24
== END 2024-06-02 14:18 | disposition home or self-care (01) ==
LOC: ED 06-02 00:17 → PCU 06-02 04:01
PROVIDERS: Admitting Provider Family Medicine; Emergency Provider Emergency Medicine
DX: L03.113 Cellulitis of right upper limb (principal); Z23 Encounter for immunization; F17.210 Nicotine dependence, cigarettes, uncomplicated
CPT/HCPCS: 36415; 73130; 80048; 83605; 85025; 87040; 90471; 90715; 96365; 96366; 96367; 96375; 99221; 99284; A4216; G0378; J0295